=== PATIENT | female | born 1960 | race American Indian/Alaskan Native ===

== ENCOUNTER 2016-12-12 21:55 | Emergency (ER) | payer OTHER ==
[2016-12-12 21:55] VITALS: BMI 22.6
[2016-12-12 21:59] VITALS: TEMP 98.3
--- NOTE | 2016-12-12 22:49 | ED PDOC ---
Arrival/HPI - General Chief Complaint: High Blood Pressure Time Seen by Provider: 12/12/16 22:36 Historian: Patient - History of Present Illness Narrative History of Present Illness (Text): 12/12/16 22:48 Donny Stevenson is a 56 year old female who presents to the Emergency department complaining of dizziness today. Patient states she felt her blood pressure may have been elevated earlier today, went to a pharmacy to check, and noted her blood pressure was 150 systolic. Patient also states she felt dizzy and wanted her blood sugar checked. Patient denies any fever, chills, chest pain, shortness of breath, nausea, vomiting, diarrhea, urinary symptoms, back pain, neck pain, vision changes, headache, or any other complaints. PMD: Dr. Beckham Symptom Onset: Gradual Symptom Course: Unchanged Activities at Onset: Light Context: Home Past Medical History - Provider Review Nursing Documentation Reviewed: Yes - Infectious Disease Hx of Infectious Diseases: None - Tetanus Immunization Tetanus Immunization: Unknown - Cardiac Hx Cardiac Disorders: No - Pulmonary Hx Respiratory Disorders: No - Neurological Hx Neurological Disorder: No - HEENT Hx HEENT Disorder: Yes (wears glasses) Other/Comment: blurry of vision on right eye - Renal Hx Renal Disorder: No - Endocrine/Metabolic Hx Diabetes Mellitus Type 1: Yes - Hematological/Oncological Hx Blood Disorders: No - Integumentary Hx Dermatological Disorder: No - Musculoskeletal/Rheumatological Hx Musculoskeletal Disorders: No Hx Falls: No - Gastrointestinal Hx Gastrointestinal Disorders: Yes Other/Comment: GALLSTONES - Genitourinary/Gynecological Hx Genitourinary Disorders: No - Psychiatric Hx Psychophysiologic Disorder: No Hx Anxiety: No Hx Bipolar Disorder: No Hx Depression: No Hx Emotional Abuse: No Hx Hallucinations: No Hx Panic Disorder: No Hx Post Traumatic Stress Disorder: No Hx Psychosis: No Hx Physical Abuse: No Hx Schizophrenia: No Hx Sexual Abuse: No Hx Substance Use: No - Anesthesia Hx Anesthesia: Yes Hx Anesthesia Reactions: No Hx Malignant Hyperthermia: No - Suicidal Assessment Feels Threatened In Home Enviroment: No Family/Social History - Physician Review Nursing Documentation Reviewed: Yes Family/Social History: Unknown Family HX Smoking Status: Former Smoker Hx Alcohol Use: No Hx Substance Use: No Allergies/Home Meds Allergies/Adverse Reactions: Allergies No Known Allergies Allergy (Verified 10/26/15 16:37) Home Medications: Home Meds Medication Instructions Recorded Confirmed Zolpidem HALF TABLET [Ambien] 1 tab PO HS PRN 12/12/16 12/12/16 Review of Systems - Physician Review All systems were reviewed & negative as marked: Yes - Review of Systems Constitutional: Normal. absent: Fevers Eyes: Normal ENT: Normal Respiratory: Normal. absent: SOB, Cough Cardiovascular: Normal. absent: Chest Pain Gastrointestinal: Normal. absent: Abdominal Pain, Diarrhea, Nausea, Vomiting Genitourinary Female: Normal. absent: Dysuria, Frequency, Hematuria, Urine Output Changes Musculoskeletal: Normal. absent: Back Pain, Neck Pain Skin: Normal. absent: Rash Neurological: Normal, Dizziness. absent: Headache Endocrine: Normal Hemo/Lymphatic: Normal Psychiatric: Normal Physical Exam Vital Signs Reviewed: Yes Vital Signs Temp Pulse Resp BP Pulse Ox 12/13/16 00:05 68 16 141/86 100 12/12/16 21:59 98.3 F 90 18 149/90 99 Temperature: Afebrile Blood Pressure: Normal Pulse: Regular Respiratory Rate: Normal Appearance: Positive for: Well-Appearing, Non-Toxic, Comfortable Pain Distress: None Mental Status: Positive for: Alert and Oriented X 3 - Systems Exam Head: Present: Atraumatic, Normocephalic Pupils: Present: PERRL Extroacular Muscles: Present: EOMI Conjunctiva: Present: Normal Mouth: Present: Moist Mucous Membranes Neck: Present: Normal Range of Motion Respiratory/Chest: Present: Clear to Auscultation, Good Air Exchange. No: Respiratory Distress, Accessory Muscle Use Cardiovascular: Present: Regular Rate and Rhythm, Normal S1, S2. No: Murmurs Abdomen: Present: Normal Bowel Sounds. No: Tenderness, Distention, Peritoneal Signs Back: Present: Normal Inspection Upper Extremity: Present: Normal Inspection. No: Cyanosis, Edema Lower Extremity: Present: Normal Inspection. No: Edema Neurological: Present: GCS=15, CN II-XII Intact, Speech Normal Skin: Present: Warm, Dry, Normal Color. No: Rashes Psychiatric: Present: Alert, Oriented x 3, Normal Insight, Normal Concentration Medical Decision Making ED Course and Treatment: 12/12/16 22:48 Impression: 56 year old female complaining of dizziness tonight. Differential Diagnosis included but are not limited to: hypertension Plan: -- EKG -- Labs, cardiac enzymes -- Reassess and disposition Prior Visits: Notes and results from previous visits were reviewed. On 12/29/2015, pt was seen in the Emergency department for light-headedness. Pt was discharged home. Progress Notes: Reviewed EKG, NSR at [address]-segment elevations or depressions, no T-wave inversions, normal intervals. 12/12/16 23:55 On reevaluation the patient feels better and is in no acute distress. I have discussed the results and plan with the patient, who expresses understanding. Patient given the opportunity to ask question, all questions were answered and there is agreement with the plan to discharge the patient home Patient is stable for discharge. Patient was instructed to follow up with physician/clinic in 1-2 days or return if symptoms persist/worsen or new concerning symptoms arise. - Lab Interpretations Lab Results: 12/12/16 23:00 12/12/16 23:00 Lab Results 12/12/16 23:00: WBC 3.2 L, RBC 4.33, Hgb 12.5, Hct 38.5, MCV 88.9, MCH 28.9, MCHC 32.5, RDW 13.8, Plt Count 272, MPV 9.7 12/12/16 23:00: Sodium 142, Potassium 3.9, Chloride 103, Carbon Dioxide 30, Anion Gap 13, BUN 18, Creatinine 0.8, Est GFR ( Amer) > 60, Est GFR (Non- Af Amer) > 60, Random Glucose 116 H, Calcium 9.8, Total Bilirubin 0.9, AST 24, ALT 26, Alkaline Phosphatase 60, Lactate Dehydrogenase 457, Total Creatine Kinase 367 H, CK-MB (CK-2) 4.1 H, CK-MB (CK-2) % Cancelled, Troponin I < 0.01, Total Protein 7.0, Albumin 4.0, Globulin 2.9, Albumin/Globulin Ratio 1.4 12/12/16 23:00: PT 10.7, INR 0.99, APTT 26.8 I have reviewed the lab results: Yes - EKG Interpretation Interpreted by ED Physician: Yes Type: 12 lead EKG - Scribe Statement The provider has reviewed the documentation as recorded by the Sunny June Provider Scribe Attestation: All medical record entries made by the Scribe were at my direction and personally dictated by me. I have reviewed the chart and agree that the record accurately reflects my personal performance of the history, physical exam, medical decision making, and the department course for this patient. I have also personally directed, reviewed, and agree with the discharge instructions and disposition. Disposition/Present on Arrival - Present on Arrival Any Indicators Present on Arrival: No History of DVT/PE: No History of Uncontrolled Diabetes: No Urinary Catheter: No History of Decub. Ulcer: No History Surgical Site Infection Following: None - Disposition Have Diagnosis and Disposition been Completed?: Yes Diagnosis: Hypertension Disposition: HOME/ ROUTINE Disposition Time: 23:55 Patient Plan: Discharge Condition: GOOD Discharge Instructions (ExitCare): Hypertension (ED) Additional Instructions: Take meds as prescribed/follow up with your doctor this week Prescriptions: amLODIPine [Norvasc] 2.5 mg PO DAILY #21 tab Referrals: Paige Siu, [Primary Care Provider] - Follow up with primary Forms: [employer] (German)
[2016-12-12 23:18] LABS: HEMATOCRIT 38.5 % (36.0-48.0); MEAN CELL VOLUME 88.9 fl (80.0-105.0); MEAN CORPUSCULAR HEMOGLOBIN 28.9 pg (25.0-35.0); MEAN CORPUSCULAR HGB CONC 32.5 g/dl (31.0-37.0); MEAN PLATELET VOLUME 9.7 fl (7.0-11.0); RED CELL DISTRIBUTION WIDTH 13.8 % (11.5-14.5); WHITE BLOOD COUNT 3.2 10^3/ul (4.5-11.0)
[2016-12-12 23:24] LABS: INR 0.99 (0.93-1.08); PARTIAL THROMBOPLASTIN TIME 26.8 Seconds (23.7-30.8)
[2016-12-12 23:30] LABS: ALB/GLOB RATIO 1.4 (1.1-1.8); ALKALINE PHOSPHATASE 60 U/L (38-126); ALT/SGPT 26 U/L (7-56); AST/SGOT 24 U/L (14-36); BILIRUBIN,TOTAL 0.9 mg/dL (0.2-1.3); BLOOD UREA NITROGEN 18 mg/dL (7-21); CALCIUM 9.8 mg/dL (8.4-10.5); CARBON DIOXIDE 30 mmol/L (21-33); CHLORIDE 103 mmol/L (95-110); GFR AFRICAN-AMERICAN > 60; GLUCOSE,RANDOM 116 mg/dL (70-110); POTASSIUM 3.9 mmol/L (3.6-5.0); SODIUM 142 mmol/L (132-148)
[2016-12-12 23:42] LABS: TROPONIN I < 0.01 ng/mL
[2016-12-13 00:05] VITALS: BP 141/86; PULSE 68; RESP 16; O2SAT 100
--- NOTE | 2016-12-13 14:24 | CARD ---
APPROVED REPORT EKG Measurement Heart [id number] <Conclusion> Normal sinus rhythm Normal ECG
== END 2016-12-13 00:05 | disposition home or self-care (01) ==
LOC: ED 21:55
DX: I10 Essential (primary) hypertension (principal); Z87.891 Personal history of nicotine dependence

== ENCOUNTER 2017-01-05 19:09 | Emergency (ER) | payer OTHER ==
[2017-01-05 19:10] VITALS: BMI 22.6
[2017-01-05 19:39] VITALS: BP 121/83; PULSE 74; RESP 16; TEMP 98.4; O2SAT 98
--- NOTE | 2017-01-05 19:59 | ED PDOC ---
Arrival/HPI - General Chief Complaint: Medical Clearance Time Seen by Provider: 01/05/17 19:45 - History of Present Illness Narrative History of Present Illness (Text): 01/05/17 19:57 Patient is a 56 y/o F with hx of chronic heartburn and dysphasia, presenting complaining of sore throat. She denies pain or difficulty eating. She is requesting a po medication to help her. She reports that she wants to cough and was a feeling like she has mucus in her throat. Patient has been seen multiple times by ENT, GI, neurology for similar symptoms. Denies coughing, nausea, vomiting, or drooling. Past Medical History - Infectious Disease Hx of Infectious Diseases: None - Tetanus Immunization Tetanus Immunization: Unknown - Cardiac Hx Cardiac Disorders: No - Pulmonary Hx Respiratory Disorders: No - Neurological Hx Neurological Disorder: No - HEENT Hx HEENT Disorder: Yes (wears glasses) Other/Comment: blurry of vision on right eye - Renal Hx Renal Disorder: No - Endocrine/Metabolic Hx Diabetes Mellitus Type 1: Yes - Hematological/Oncological Hx Blood Disorders: No - Integumentary Hx Dermatological Disorder: No - Musculoskeletal/Rheumatological Hx Musculoskeletal Disorders: No Hx Falls: No - Gastrointestinal Hx Gastrointestinal Disorders: Yes Other/Comment: GALLSTONES - Genitourinary/Gynecological Hx Genitourinary Disorders: No - Psychiatric Hx Psychophysiologic Disorder: Yes Hx Anxiety: No Hx Bipolar Disorder: No Hx Depression: No Hx Emotional Abuse: No Hx Hallucinations: No Hx Panic Disorder: No Hx Post Traumatic Stress Disorder: No Hx Psychosis: No Hx Physical Abuse: No Hx Schizophrenia: No Hx Sexual Abuse: No Hx Substance Use: No Other/Comment: Insomnia - Anesthesia Hx Anesthesia: Yes Hx Anesthesia Reactions: No Hx Malignant Hyperthermia: No - Suicidal Assessment Feels Threatened In Home Enviroment: No Family/Social History Family/Social History: No Known Family HX Smoking Status: Former Smoker Hx Alcohol Use: No Hx Substance Use: No Allergies/Home Meds Allergies/Adverse Reactions: Allergies No Known Allergies Allergy (Verified 01/05/17 19:39) Home Medications: Home Meds Medication Instructions Recorded Confirmed Zolpidem HALF TABLET [Ambien] 1 tab PO HS PRN 12/12/16 01/05/17 Review of Systems - Review of Systems Constitutional: absent: Weight Change, Fevers Eyes: absent: Vision Changes ENT: Sore Throat, Other (no drooling, no voice change, able to tolerate po). absent: Voice Changes, Rhinorrhea, Sinus Congestion Respiratory: Cough. absent: SOB, Sputum, Wheezing Cardiovascular: absent: Chest Pain, Palpitations Gastrointestinal: absent: Abdominal Pain, Constipation, Diarrhea, Nausea, Vomiting, Food Intolerance Genitourinary Female: absent: Dysuria Physical Exam Vital Signs Temp Pulse Resp BP Pulse Ox 01/05/17 19:36 98.4 F 74 16 121/83 98 Temperature: Afebrile Blood Pressure: Normal Pulse: Regular Respiratory Rate: Normal Appearance: Positive for: Well-Appearing, Non-Toxic, Comfortable Pain Distress: None Mental Status: Positive for: Alert and Oriented X 3 - Systems Exam Head: Present: Atraumatic, Normocephalic Pupils: Present: PERRL Extroacular Muscles: Present: EOMI Conjunctiva: Present: Normal Mouth: Present: Moist Mucous Membranes, Normal Lips, Normal Tounge, Normal Teeth. No: Drooling Pharnyx: No: ERYTHEMA, EXUDATE, TONSILS ENLARGED, Peritonsilar Swelling, Uvular Deviation, Muffled/Hoarse Voice, Strider, Soft Palate/Uvular Edema Nose (External): Present: Atraumatic Neck: Present: Normal Range of Motion Respiratory/Chest: Present: Clear to Auscultation, Good Air Exchange. No: Respiratory Distress Cardiovascular: Present: Regular Rate and Rhythm, Normal S1, S2. No: Murmurs Neurological: Present: GCS=15 Psychiatric: Present: Alert, Oriented x 3 Medical Decision Making ED Course and Treatment: 01/05/17 20:26 Ambulating around the ED without issue. Requesting po meds. 01/05/17 21:14 Strep is negative. Patient tolerating po. Instructed to follow-up with ENT - Lab Interpretations Lab Results: Lab Results 01/05/17 21:27: POC Glucose (mg/dL) 77 01/05/17 20:35: Grp A Beta Strep Ag Negative - Medication Orders Current Medication Orders: Discontinued Medications Ibuprofen (Motrin Tab) 600 mg PO STAT STA Stop: 01/05/17 20:07 Last Admin: 01/05/17 20:40 Dose: 600 mg MAR Pain/Vitals Document 01/05/17 20:40 SC (Rec: 01/05/17 20:40 SC [id number]) Pain Reassessment Is This A Pain ReAssessment? No Sleep Is patient sleeping during reassessment? No Presence of Pain Presence of Pain Yes Pain Scale Used Pain Scale Used Numeric Location Pain Location Body Site Throat Intensity 5 Scale Used Numeric Disposition/Present on Arrival - Present on Arrival Any Indicators Present on Arrival: No History of DVT/PE: No History of Uncontrolled Diabetes: No Urinary Catheter: No History of Decub. Ulcer: No History Surgical Site Infection Following: None - Disposition Have Diagnosis and Disposition been Completed?: Yes Diagnosis: Dysphagia Disposition: HOME/ ROUTINE Disposition Time: 21:15 Patient Plan: Discharge Condition: GOOD Additional Instructions: Follow-up with PMD within 2 days. Return to ED if condition worsens. Follow-up with ENT Referrals: [facility] [Outside] - Follow up with primary [facility] at [facility] [Outside] - Follow up with primary Darwin Bernardo DO [Doctor Osteopathy] - Follow up with primary Forms: [employer] (Guyanese)
== END 2017-01-05 21:34 | disposition home or self-care (01) ==
LOC: ED 19:09
DX: R13.10 Dysphagia, unspecified (principal); E11.9 Type 2 diabetes mellitus without complications

== ENCOUNTER 2017-09-05 16:38 | Emergency (ER) | payer OTHER ==
[2017-09-05 16:38] VITALS: BMI 22.6
[2017-09-05 16:55] VITALS: BP 144/88; PULSE 78; RESP 18; TEMP 98.3; O2SAT 98
--- NOTE | 2017-09-05 17:09 | ED PDOC ---
Arrival/HPI - General Chief Complaint: Medical Clearance Time Seen by Provider: 09/05/17 16:55 Historian: Patient - History of Present Illness Narrative History of Present Illness (Text): 09/05/17 17:07 This 57 yo female who denies pmh , presents to this ED requesting her blood pressure check. Patient stated she feels well. Patient denies fever, SOB, CP, abdominal pain, urinary symptoms, dizziness, diplopia, dysarthria, weakness, She denies other somatic complains. 09/05/17 17:16 Time/Duration: Other (see hpi) Context: Home Past Medical History - Provider Review Nursing Documentation Reviewed: Yes - Infectious Disease Hx of Infectious Diseases: None - Tetanus Immunization Tetanus Immunization: Unknown - Cardiac Hx Cardiac Disorders: No - Pulmonary Hx Respiratory Disorders: No - Neurological Hx Neurological Disorder: No - HEENT Hx HEENT Disorder: Yes (wears glasses) - Renal Hx Renal Disorder: No - Endocrine/Metabolic Hx Endocrine Disorders: No - Hematological/Oncological Hx Blood Disorders: No - Integumentary Hx Dermatological Disorder: No - Musculoskeletal/Rheumatological Hx Musculoskeletal Disorders: No Hx Falls: No - Gastrointestinal Hx Gastrointestinal Disorders: Yes Other/Comment: GALLSTONES - Genitourinary/Gynecological Hx Genitourinary Disorders: No - Psychiatric Hx Psychophysiologic Disorder: Yes Hx Substance Use: No Other/Comment: Insomnia - Anesthesia Hx Anesthesia: Yes Hx Anesthesia Reactions: No Hx Malignant Hyperthermia: No - Suicidal Assessment Feels Threatened In Home Enviroment: No Family/Social History - Physician Review Nursing Documentation Reviewed: Yes Family/Social History: Other (noncontributory) Smoking Status: Former Smoker Hx Alcohol Use: No Hx Substance Use: No Allergies/Home Meds Allergies/Adverse Reactions: Allergies No Known Allergies Allergy (Verified 09/05/17 16:55) Home Medications: Home Meds Medication Instructions Recorded Confirmed Zolpidem HALF TABLET [Ambien] 1 tab PO HS PRN 12/12/16 09/05/17 Review of Systems - Review of Systems Constitutional: Normal. absent: Fatigue, Weight Change, Fevers Eyes: Normal ENT: Normal. absent: Sore Throat, Rhinorrhea Respiratory: Normal. absent: SOB, Cough Cardiovascular: Normal. absent: Chest Pain, Palpitations Gastrointestinal: Normal. absent: Abdominal Pain, Nausea, Vomiting Genitourinary Female: Normal. absent: Dysuria, Frequency, Hematuria Musculoskeletal: Normal Skin: Normal. absent: Rash, Pruritis, Skin Lesions Neurological: Normal. absent: Headache, Dizziness, Focal Weakness, Gait Changes , Speech Changes, Facial Droop, Disequilibrium, Seizure Endocrine: Normal Hemo/Lymphatic: Normal Psychiatric: Normal. absent: Anxiety, Depression, Suicidal Ideation Physical Exam Vital Signs Temp Pulse Resp BP Pulse Ox 09/05/17 16:49 98.3 F 78 18 144/88 98 Temperature: Afebrile Blood Pressure: Normal Pulse: Regular Respiratory Rate: Normal Appearance: Positive for: Well-Appearing, Non-Toxic, Comfortable Pain Distress: None Mental Status: Positive for: Alert and Oriented X 3 - Systems Exam Head: Present: Atraumatic, Normocephalic Pupils: Present: PERRL Extroacular Muscles: Present: EOMI Conjunctiva: Present: Normal Mouth: Present: Moist Mucous Membranes Neck: Present: Normal Range of Motion Respiratory/Chest: Present: Clear to Auscultation, Good Air Exchange. No: Respiratory Distress, Accessory Muscle Use Cardiovascular: Present: Regular Rate and Rhythm, Normal S1, S2. No: Murmurs Abdomen: No: Tenderness, Distention, Peritoneal Signs Back: Present: Normal Inspection. No: CVA Tenderness Upper Extremity: Present: Normal Inspection, Normal ROM, NORMAL PULSES, Neurovascularly Intact, Capillary Refill < 2s. No: Cyanosis, Edema Lower Extremity: Present: Normal Inspection, NORMAL PULSES, Normal ROM, Neurovascularly Intact, Capillary Refill < 2 s. No: Edema Neurological: Present: GCS=15, CN II-XII Intact, Speech Normal, Motor Func Grossly Intact, Normal Sensory Function, Normal Cerebellar Funct, Gait Normal Skin: Present: Warm, Dry, Normal Color. No: Rashes Psychiatric: Present: Alert, Oriented x 3, Normal Insight, Normal Concentration Medical Decision Making ED Course and Treatment: 09/05/17 17:10 Re-evaluation. Patient feels better. Discussed results and plan with patient who expresses understanding. All questions answered and there is agreement with the plan to discharge home with instructions. Patient stable for discharge. Return if symptoms persist or worsen. Re-evaluation Time: 17:10 Reassessment Condition: Re-examined, Improved Disposition/Present on Arrival - Present on Arrival Any Indicators Present on Arrival: No History of DVT/PE: No History of Uncontrolled Diabetes: No Urinary Catheter: No History of Decub. Ulcer: No History Surgical Site Infection Following: None - Disposition Have Diagnosis and Disposition been Completed?: Yes Diagnosis: Hypertension Disposition: HOME/ ROUTINE Disposition Time: 17:11 Patient Plan: Discharge Condition: GOOD Discharge Instructions (ExitCare): High Blood Pressure (DC), Low Salt Diet Additional Instructions: Call private doctor for follow up visit in 1-2 days. You should call Clinic doctor for revaluation. Return to emergency if symptoms worsen. Referrals: [facility] [Outside] - Follow up with primary [facility] [Outside] - Follow up with primary
== END 2017-09-05 17:30 | disposition home or self-care (01) ==
LOC: ED 16:38
DX: I10 Essential (primary) hypertension (principal); Z87.891 Personal history of nicotine dependence

== ENCOUNTER 2017-11-17 19:00 | Inpatient (IN) | payer OTHER ==
[2017-11-17 19:11] VITALS: BMI 24.2
--- NOTE | 2017-11-17 19:15 | ED PDOC ---
Arrival/HPI - General Chief Complaint: Weakness/Neurological Deficit Time Seen by Provider: 11/17/17 19:02 Historian: Patient - History of Present Illness Narrative History of Present Illness (Text): 11/17/17 19:48 57 yr old female w/ hx of previous cerebellar stroke, poor historian p/w diffuse body weakness described as "heavyness" x1 week. Pt reports never feeling these symptoms in the past. She neither describes the dizziness as either vertigo or lightheadedness. She notes these symptoms have been constant over the last week- and that today roughly 2 hours prior she developed a mild headache. She denies any Chest pain, shortness of breath, dysuria, urgency or frequency, dark or bloody stool, constipation, diarrhea, nausea, vomiting, trauma. No fever or neck stiffness. She denies any new diet or recent travel or any bug bites. No rashes. She notes she does not have a PMD. 11/17/17 19:55 Past Medical History - Provider Review Nursing Documentation Reviewed: Yes - Travel History Have you recently traveled outside [place] w/in the past 3 mons?: No - Infectious Disease Hx of Infectious Diseases: None - Tetanus Immunization Tetanus Immunization: Unknown - Reproductive Menopause: Yes - Cardiac Hx Cardiac Disorders: No - Pulmonary Hx Respiratory Disorders: No - Neurological Hx Neurological Disorder: No - HEENT Hx HEENT Disorder: Yes (wears glasses) - Renal Hx Renal Disorder: No - Endocrine/Metabolic Hx Endocrine Disorders: No - Hematological/Oncological Hx Blood Disorders: No - Integumentary Hx Dermatological Disorder: No - Musculoskeletal/Rheumatological Hx Musculoskeletal Disorders: No Hx Falls: No - Gastrointestinal Hx Gastrointestinal Disorders: Yes Hx Gall Bladder Disease: Yes Other/Comment: GALLSTONES - Genitourinary/Gynecological Hx Genitourinary Disorders: No - Psychiatric Hx Psychophysiologic Disorder: Yes Hx Substance Use: No Other/Comment: Insomnia - Anesthesia Hx Anesthesia: Yes Hx Anesthesia Reactions: No Hx Malignant Hyperthermia: No - Suicidal Assessment Feels Threatened In Home Enviroment: No Family/Social History - Physician Review Nursing Documentation Reviewed: Yes Family/Social History: Unknown Family HX Smoking Status: Former Smoker Hx Alcohol Use: No Hx Substance Use: No Allergies/Home Meds Allergies/Adverse Reactions: Allergies No Known Allergies Allergy (Verified 09/05/17 16:55) Home Medications: Home Meds Medication Instructions Recorded Confirmed Zolpidem HALF TABLET [Ambien] 1 tab PO HS PRN 12/12/16 09/05/17 Review of Systems - Review of Systems Constitutional: Fatigue Eyes: Normal ENT: Normal Respiratory: Normal Cardiovascular: Normal Gastrointestinal: Normal Genitourinary Female: Normal Musculoskeletal: Normal Skin: Normal Neurological: Headache Endocrine: Normal Hemo/Lymphatic: Normal Psychiatric: Normal Physical Exam Vital Signs Temp Pulse Resp BP Pulse Ox 11/17/17 20:52 68 16 128/91 H 100 11/17/17 19:05 98.1 F 76 18 143/88 98 Temperature: Afebrile Blood Pressure: Normal Pulse: Regular Respiratory Rate: Normal Appearance: Positive for: Well-Appearing, Non-Toxic, Comfortable Pain Distress: None Mental Status: Positive for: Alert and Oriented X 3 - Systems Exam Head: Present: Atraumatic, Normocephalic Pupils: Present: PERRL Extroacular Muscles: Present: EOMI Conjunctiva: Present: Normal Mouth: Present: Moist Mucous Membranes Neck: Present: Normal Range of Motion. No: Meningeal Signs, MIDLINE TENDERNESS Respiratory/Chest: Present: Clear to Auscultation, Good Air Exchange. No: Respiratory Distress, Accessory Muscle Use Cardiovascular: Present: Regular Rate and Rhythm, Normal S1, S2. No: Murmurs Abdomen: No: Tenderness, Distention, Peritoneal Signs Back: Present: Normal Inspection Upper Extremity: Present: Normal Inspection. No: Cyanosis, Edema Lower Extremity: Present: Normal Inspection. No: Edema Neurological: Present: GCS=15, CN II-XII Intact, Speech Normal, Motor Func Grossly Intact, Normal Sensory Function, Normal Cerebellar Funct (good finger to nose and heel to booth. ). No: Gait Normal (when asked to walk straight pt walks in an arc. ) Skin: Present: Warm, Dry, Normal Color. No: Rashes Psychiatric: Present: Alert, Oriented x 3, Normal Insight, Normal Concentration Medical Decision Making ED Course and Treatment: 11/17/17 19:58 57 yr old female w/ hx of cerebellar stroke p/w heavyness and mild MATA. MATA not worst of life, not sudden in onset- and within 6 hours, u/l SAH but will r/ out w/ CT. Heavyness w/ out recent sickness, new foods, upgoing or downgoing paralysis, will check TSH, basic labs, and cardiac w/u. Given hx of cerebellar stroke and abnl arcing gait but normal cereballar finger to nose and heel to booth, will likely require further f/u inpt for ?stroke 1 week prior. Labs and imaging ordered. 11/17/2017 20:[address] IMPRESSION: No acute intracranial pathology or traumatic injury. Dictator: Ronaldo Lopez MD 11/17/17 21:36 pending TSH. labs otherwise unremarkable given hx of CVA, and findings will consult neuro 11/17/17 21:47 appreciate consult w/ Dr. Taylor (neuro)- ASA, MRI, obs- will see pt in AM Pt has no PMD per pt. Appreciate consult w/ Dr. Shah (hospitalist)- to go to hospitalist service. updated pt. will admit to obs. - Lab Interpretations Lab Results: 11/17/17 20:30 11/17/17 20:30 Lab Results 11/17/17 20:45: Urine Color Straw, Urine Appearance Clear, Urine pH 6.0, Ur Specific Caldwell 1.020, Urine Protein Negative, Urine Glucose (UA) Negative, Urine Ketones Negative, Urine Blood Negative, Urine Nitrate Negative, Urine Bilirubin Negative, Urine Urobilinogen 0.2, Ur Leukocyte Esterase Trace H, Urine RBC 0 - 2, Urine WBC 1 - 3, Ur Epithelial Cells 3 - 4, Urine Bacteria Mod 11/17/17 20:36: pO2 40, VBG pH 7.36, VBG pCO2 50.0, VBG HCO3 28.2 H, VBG Total CO2 29.7 H, VBG O2 Sat (Calc) 77.0 H, VBG Base Excess 1.9, VBG Potassium 3.4 L, Glucose 78, Lactate 0.7, FiO2 21.0, Sodium 140.0, Chloride 106.0, Venous Blood Potassium 3.4 L 11/17/17 20:30: TSH 3rd Generation 2.32 11/17/17 20:30: Sodium 144, Potassium 3.5 L, Chloride 107, Carbon Dioxide 26, Anion Gap 14, BUN 12, Creatinine 0.7, Est GFR ( Amer) > 60, Est GFR (Non- Af Amer) > 60, Random Glucose 82, Calcium 9.7, Phosphorus 3.9, Magnesium 2.0, Total Bilirubin 0.3, AST 23, ALT 17, Alkaline Phosphatase 74, Troponin I < 0.01 , NT-Pro-B Natriuret Pep 64.1, Total Protein 7.6, Albumin 4.3, Globulin 3.3, Albumin/Globulin Ratio 1.3 11/17/17 20:30: WBC 4.0 L D, RBC 4.43, Hgb 12.6, Hct 38.0, MCV 85.8 D, MCH 28.4 , MCHC 33.2, RDW 14.1, Plt Count 305, MPV 9.7, Gran % 36.6 L, Lymph % (Auto) 51.5 H, Clark % (Auto) 8.6 H, Eos % (Auto) 2.8, Baso % (Auto) 0.5, Gran # 1.45, Lymph # (Auto) 2.0, Clark # (Auto) 0.3, Eos # (Auto) 0.1, Baso # (Auto) 0.02 - RAD Interpretation Radiology Orders: 11/17/17 19:43 HEAD W/O CONTRAST [CT] Stat CHEST TWO VIEWS (PA/LAT) [RAD] Stat - Medication Orders Current Medication Orders: Discontinued Medications Aspirin (Aspirin) 325 mg PO STAT STA Stop: 11/17/17 21:40 Disposition/Present on Arrival - Present on Arrival Any Indicators Present on Arrival: No History of DVT/PE: No History of Uncontrolled Diabetes: No Urinary Catheter: No History of Decub. Ulcer: No History Surgical Site Infection Following: None - Disposition Have Diagnosis and Disposition been Completed?: Yes Diagnosis: Weakness Disposition Time: 21:49 Condition: GOOD Discharge Instructions (ExitCare): Weakness (ED) Referrals: PCP,NO [Primary Care Provider] - Follow up with primary Forms: [employer] ([place])
[2017-11-17 20:44] LABS: VENOUS BLOOD GAS BASE EXCESS 1.9 mmol/L (0.0-2.0); VENOUS BLOOD GAS PO2 40 mm/Hg (30-55); VENOUS BLOOD PH 7.36 (7.32-7.43)
[2017-11-17 20:49] LABS: BASO # 0.02 K/mm3 (0.0-2.0); BASO % 0.5 % (0.0-3.0); EOS # 0.1 (0.0-0.7); EOS % 2.8 % (1.5-5.0); GRAN # 1.45 (1.4-6.5); GRAN % 36.6 % (50.0-68.0); HEMOGLOBIN 12.6 g/dL (12.0-16.0); LYMPH % 51.5 % (22.0-35.0); MEAN CORPUSCULAR HEMOGLOBIN 28.4 pg (25.0-35.0); MEAN CORPUSCULAR HGB CONC 33.2 g/dl (31.0-37.0); MEAN PLATELET VOLUME 9.7 fl (7.0-11.0); MONO # 0.3 (0.1-0.6); MONO % 8.6 % (1.0-6.0); RBC 4.43 10^6/uL (3.5-6.1); RED CELL DISTRIBUTION WIDTH 14.1 % (11.5-14.5)
[2017-11-17 20:50] LABS: MEAN CELL VOLUME 85.8 fl (80.0-105.0)
[2017-11-17 21:12] LABS: URINE BILIRUBIN NEGATIVE (NEGATIVE); URINE BLOOD NEGATIVE (NEGATIVE); URINE GLUCOSE (UA) NEGATIVE (NEGATIVE); URINE LEUKOCYTE ESTERASE TRACE Leu/uL (NEGATIVE); URINE PROTEIN NEGATIVE mg/dL (<30 mg/dL); URINE UROBILINOGEN 0.2 E.U./dL (<1 E.U./dL)
[2017-11-17 21:14] LABS: ALB/GLOB RATIO 1.3 (1.1-1.8); ALBUMIN 4.3 g/dL (3.0-4.8); ALT/SGPT 17 U/L (7-56); AST/SGOT 23 U/L (14-36); BLOOD UREA NITROGEN 12 mg/dL (7-21); CALCIUM 9.7 mg/dL (8.4-10.5); GFR NON-AFRICAN AMERICAN > 60
[2017-11-17 21:23] LABS: URINE APPEARANCE CLEAR (CLEAR); URINE COLOR STRAW (YELLOW)
[2017-11-17 21:25] LABS: B-TYPE NATRIURETIC PEPTIDE 64.1 pg/mL (0-450); TROPONIN I < 0.01 ng/mL
[2017-11-17 21:28] LABS: URINE BACTERIA MOD (NEG); URINE RBC 0 - 2 /hpf (0-2)
[2017-11-17] MEDS ORDERED: Potassium Chloride 20 mEq ER Tab PO ONE (22:10)
--- NOTE | 2017-11-18 00:07 | CP.PCM.HP ---
History of Present Illness - History of Present Illness History of Present Illness: PGY-1 History & Physical for Dr. Shah's service CC: body heaviness HPI: Patient is a 57 year female w/ PMH of cerebellar stroke presents to hospital for evaluation of body heaviness. Patient reports the heaviness began about one week ago with diffuse heaviness not localized to a certain body region. She came to hospital a week later because body heaviness had not resolved and she was scared something was of concern. She says these symptoms began while she was doing nothing but are worsened when she walks for a prolonged period of time or has to climb steps. She says her knees begin to feel weak. She has took no medications at home for relief. Patient complains of difficulty swallowing at times. She says she had a diagnosis of cerebellar stroke when she was having difficulty swallowing and decided to come to hospital. During that time she was told by doctors at [facility] [place] that she had a cerebellar stroke because it was found on imaging while evaluating for swallowing difficulty. PMH- Cerebellar stroke PSH- gallbladder stone removal FH- Denies Meds- Ambien 5mg Allergies: NKDA Social: Denies alcohol, drug, tobacco use PMD: None currently Code: Full Code Present on Admission - Present on Admission Any Indicators Present on Admission: No Review of Systems - Constitutional Constitutional: absent: Chills, Fever, Headache, Weight Loss - EENT Eyes: absent: Change in Vision Ears: absent: Dizziness - Cardiovascular Cardiovascular: absent: Chest Pain, Diaphoresis, Lightheadedness, Palpitations - Respiratory Respiratory: absent: Cough, Dyspnea - Gastrointestinal Gastrointestinal: absent: Abdominal Pain, Constipation, Diarrhea, Nausea, Vomiting - Genitourinary Genitourinary: absent: Change in Urinary Stream, Difficulty Urinating, Dysuria - Musculoskeletal Musculoskeletal: absent: Abnormal Gait, Back Pain, Numbness, Tingling - Neurological Neurological: absent: Dizziness, Numbness, Focal Weakness, Headaches, Weakness Additional comments: body heaviness Past Patient History - Infectious Disease Hx of Infectious Diseases: None - Tetanus Immunizations Tetanus Immunization: Unknown - Past Medical History & Family History Past Medical History?: No - Past Social History Smoking Status: Former Smoker - CARDIAC Hx Cardiac Disorders: No - PULMONARY Hx Respiratory Disorders: No - NEUROLOGICAL Hx Neurological Disorder: No - HEENT Hx HEENT Problems: Yes (wears glasses) - RENAL Hx Chronic Kidney Disease: No - ENDOCRINE/METABOLIC Hx Endocrine Disorders: No - HEMATOLOGICAL/ONCOLOGICAL Hx Blood Disorders: No - INTEGUMENTARY Hx Dermatological Problems: No - MUSCULOSKELETAL/RHEUMATOLOGICAL Hx Musculoskeletal Disorders: No Hx Falls: No - GASTROINTESTINAL Hx Gastrointestinal Disorders: Yes Hx Gall Bladder Disease: Yes Other/Comment: GALLSTONES - GENITOURINARY/GYNECOLOGICAL Hx Genitourinary Disorders: No - PSYCHIATRIC Hx Psychophysiologic Disorder: Yes Hx Substance Use: No Other/Comment: Insomnia - SURGICAL HISTORY Hx Surgeries: Yes (removal of stone in the gallbladder) - ANESTHESIA Hx Anesthesia: Yes Hx Anesthesia Reactions: No Hx Malignant Hyperthermia: No Meds Allergies/Adverse Reactions: Allergies Allergy/AdvReac Type Severity Reaction Status Date / Time No Known Allergies Allergy Verified 09/05/17 16:55 Physical Exam - Constitutional Appears: Non-toxic, No Acute Distress - Head Exam Head Exam: NORMAL INSPECTION, NORMOCEPHALIC - Eye Exam Eye Exam: EOMI, Normal appearance. absent: Nystagmus, Scleral icterus Pupil Exam: NORMAL ACCOMODATION - ENT Exam ENT Exam: Mucous Membranes Moist, Normal Exam - Respiratory Exam Respiratory Exam: Clear to Auscultation Bilateral, NORMAL BREATHING PATTERN. absent: Rales, Rhonchi, Wheezes - Cardiovascular Exam Cardiovascular Exam: REGULAR RHYTHM, +S1, +S2 - GI/Abdominal Exam GI & Abdominal Exam: Normal Bowel Sounds, Soft. absent: Distended, Firm, Guarding, Tenderness - Extremities Exam Extremities exam: Positive for: normal inspection. Negative for: calf tenderness, pedal edema - Neurological Exam Neurological exam: Alert, CN II-XII Intact, Oriented x3, Reflexes Normal - Expanded Neurological Exam Expanded Cerebellar Function: Finger to Nose: Normal Sensory exam: Lower Extremity Light Touch: Normal, Upper Extremity Light Touch: Normal Neuro motor strength exam: Left Upper Extremity: 5, Right Upper Extremity: 5, Left Lower Extremity: 5, Right Lower Extremity: 5 DTR: Patellar Left: 2+, Patellar Right: 2+ - Psychiatric Exam Psychiatric exam: Normal Affect, Normal Mood - Skin Skin Exam: Intact, Normal Color Results - Vital Signs Recent Vital Signs: Last Vital Signs Temp 98.6 F 11/17/17 23:07 Pulse 69 11/17/17 23:07 Resp 18 11/17/17 23:07 BP 127/76 11/17/17 23:07 Pulse Ox 99 11/17/17 23:07 - Labs Result Diagrams: 11/17/17 20:30 11/17/17 20:30 Assessment & Plan - Assessment and Plan (Free Text) Assessment: Patient is a 57 year old female who presents to the hospital for evaluation of body heaviness; CT head was negative for acute bleed Plan: Body heaviness Neuro Consulted: Dr. Taylor- amanda Aspirin 81mg po daily; further recommendations appreciated CT head-full read pending- negative for acute bleed U/S carotid & vertebral bodies MRA head and neck pending MRI w/o pending UDS pending; B12 pending; Folate pending TSH 2.32 Troponin negative Neurocheck q4h Repeat CBC in AM Hypokalemia 3.5; Repeat CMP in AM PPX: DVT ppx: Lovenox 40mg sc daily GI ppx: Not indicated at this time
[2017-11-18 06:37] VITALS: O2SAT 98
[2017-11-18 07:27] LABS: BASO # 0.01 K/mm3 (0.0-2.0); BASO % 0.3 % (0.0-3.0); EOS # 0.1 (0.0-0.7); EOS % 3.9 % (1.5-5.0); GRAN # 1.3 (1.4-6.5); GRAN % 39.3 % (50.0-68.0); HEMOGLOBIN 11.8 g/dL (12.0-16.0); LYMPH # 1.5 (1.2-3.4); LYMPH % 45.3 % (22.0-35.0); MEAN CELL VOLUME 85.8 fl (80.0-105.0); MEAN CORPUSCULAR HGB CONC 32.6 g/dl (31.0-37.0); MEAN PLATELET VOLUME 9.7 fl (7.0-11.0); MONO # 0.4 (0.1-0.6); MONO % 11.2 % (1.0-6.0); RBC 4.22 10^6/uL (3.5-6.1); WHITE BLOOD COUNT 3.3 10^3/ul (4.5-11.0)
[2017-11-18 07:46] LABS: HDL CHOLESTEROL 84 mg/dL (29-60)
[2017-11-18 07:50] LABS: ALB/GLOB RATIO 1.3 (1.1-1.8); ALBUMIN 3.9 g/dL (3.0-4.8); ALT/SGPT 20 U/L (7-56); AST/SGOT 26 U/L (14-36); BLOOD UREA NITROGEN 9 mg/dL (7-21); CALCIUM 9.3 mg/dL (8.4-10.5); GFR NON-AFRICAN AMERICAN > 60
[2017-11-18 07:57] LABS: LDL CHOLESTEROL 80 mg/dL (0-129)
[2017-11-18] MEDS ORDERED: Potassium Chloride 40 mEq/30 ml LIQ UD PO STA (08:07)
--- NOTE | 2017-11-18 08:35 | CT ---
Date of service: 11/17/2017 PROCEDURE: CT HEAD WITHOUT CONTRAST. HISTORY: headache, weakness COMPARISON: Noncontrast head CT performed 11/17/14 TECHNIQUE: Axial computed tomography images were obtained through the head/brain without intravenous contrast. Radiation dose: Total exam DLP = 876.77 mGy-cm. This CT exam was performed using one or more of the following dose reduction techniques: Automated exposure control, adjustment of the mA and/or kV according to patient size, and/or use of iterative reconstruction technique. FINDINGS: HEMORRHAGE: No intracranial hemorrhage. BRAIN: Diffuse atrophy with prominence of the ventricles and sulci noted. No mass effect or edema. Left cerebellar hemisphere encephalomalacia consistent with remote infarction. VENTRICLES: Unremarkable. No hydrocephalus. CALVARIUM: Unremarkable. PARANASAL SINUSES: Unremarkable as visualized. No significant inflammatory changes. MASTOID AIR CELLS: Unremarkable as visualized. No inflammatory changes. OTHER FINDINGS: None. IMPRESSION: Left cerebellar encephalomalacia. No acute findings identified. Preliminary impression was provided by virtual radiologic.
--- NOTE | 2017-11-18 08:52 | RAD ---
HISTORY: headache, heavy body COMPARISON: Chest x-ray performed 10/26/15 TECHNIQUE: Chest PA and lateral FINDINGS: Small radiopaque densities project over the chest likely related to external artifact from patient's clothing. Correlate clinically. LUNGS: No focal consolidation. Please note that chest x-ray has limited sensitivity for the detection of pulmonary masses. PLEURA: No significant pleural effusion identified. No definite pneumothorax . CARDIOVASCULAR: Cardiomegaly. Atherosclerotic calcifications of the aorta. OSSEOUS STRUCTURES: Degenerative changes. VISUALIZED UPPER ABDOMEN: Right upper quadrant surgical clips. OTHER FINDINGS: None. IMPRESSION: Cardiomegaly. Atherosclerotic calcifications of the aorta.
[2017-11-18] MEDS ORDERED: Enoxaparin 40 mg Syringe SC SCH (10:00)
[2017-11-18] MEDS ORDERED: Iohexol 350 MG/100 ML VIAL ONE (14:01)
--- NOTE | 2017-11-18 16:05 | CP.PCM.PN ---
<SherrillYoseph - Last Filed: 11/18/17 16:02> Subjective - Date & Time of Evaluation Date of Evaluation: 11/18/17 Time of Evaluation: 16:02 - Subjective Subjective: Medicine progress note for Dr. Chacon: Sherrill, PGY - 2, IM Resident Patient seen and examined at bedside. No acute events since admission, but patient is refusing MRI 2/2 claustrophobia, as she had on previous admissions as well. Patient denies any acute complaints, but states that she would like to be given ambien at night to sleep. I informed her that I would leave this up to the night resident if she has trouble sleeping. Objective - Vital Signs/Intake and Output Vital Signs (last 24 hours): Temp Pulse Resp BP Pulse Ox 98.3 F 74 18 116/78 98 11/18/17 14:12 11/18/17 14:12 11/18/17 14:12 11/18/17 14:12 11/18/17 06:00 Intake and Output: 11/18/17 11/18/17 06:59 18:59 Intake Total 0 Balance 0 - Medications Medications: Current Medications Aspirin (Aspirin Chewable) 81 mg PO DAILY [facility] Last Admin: 11/18/17 09:23 Dose: 81 mg - Labs Labs: 11/18/17 06:30 11/18/17 06:30 - Constitutional Appears: Well - Head Exam Head Exam: ATRAUMATIC, NORMAL INSPECTION, NORMOCEPHALIC Additional comments: Patient can turn her head from side to side and up and down without difficulty - Eye Exam Eye Exam: EOMI, Normal appearance, PERRL Pupil Exam: NORMAL ACCOMODATION, PERRL - ENT Exam ENT Exam: Mucous Membranes Moist, Normal Exam - Neck Exam Neck Exam: Full ROM, Normal Inspection. absent: Lymphadenopathy Additional comments: No Nuchal rigidity, - Respiratory Exam Respiratory Exam: Clear to Ausculation Bilateral, NORMAL BREATHING PATTERN - Cardiovascular Exam Cardiovascular Exam: REGULAR RHYTHM, +S1, +S2. absent: Murmur - GI/Abdominal Exam GI & Abdominal Exam: Soft, Normal Bowel Sounds. absent: Tenderness - Extremities Exam Extremities Exam: Full ROM, Normal Capillary Refill, Normal Inspection. absent : Joint Swelling, Pedal Edema - Back Exam Back Exam: NORMAL INSPECTION - Neurological Exam Neurological Exam: Alert, Awake, CN II-XII Intact, Oriented x3. absent: Motor Sensory Deficit Neuro motor strength exam: Left Upper Extremity: 5, Right Upper Extremity: 5, Left Lower Extremity: 5, Right Lower Extremity: 5 Additional comments: Patient can do finger to nose, heel to booth, and rapid hand movements without difficulty. No cerebellar deficits noted. - Psychiatric Exam Psychiatric exam: Normal Affect, Normal Mood - Skin Skin Exam: Dry, Intact, Normal Color, Warm Assessment and Plan - Assessment and Plan (Free Text) Assessment: 57 year old female admitted for atypical neurological complaints, what she describes as 'body heaviness.' CT head was negative for acute bleed, with left cerebellar encephalomalacia, but patient is known to have a past cerebellar stroke. Patient's admission in 2014 for presyncopal event showed negative troponins and negative acute stroke symptoms. Currently, B12 levels are low but Folate is normal. This would not cause the weakness symptoms that patient is describing, but will wait for neurology to comment on this. Troponin levels are negative X 2, pending third Plan: Generalized weakness - ASA 81 daily - Holding other anti-coagulation right now - Neuro Consulted: Dr. Taylor - Tox still pending - Neurocheck q4h - HHD Hypokalemia - Repleted; monitor with AM labs Questionable GERD - On chart review, previous admissions note that patient has had GERD, but no complaints this time PPX: DVT ppx: SCDs GI ppx: Not indicated at this time <Adiel Chacon - Last Filed: 11/18/17 20:36> Objective - Vital Signs/Intake and Output Vital Signs (last 24 hours): Temp Pulse Resp BP Pulse Ox 99 F 83 18 144/90 98 11/18/17 18:00 11/18/17 18:00 11/18/17 18:00 11/18/17 18:00 11/18/17 18:00 Intake and Output: 11/18/17 11/19/17 18:59 06:59 Intake Total 960 960 Output Total 500 Balance 460 960 - Medications Medications: Current Medications Aspirin (Aspirin Chewable) 81 mg PO DAILY [facility] Last Admin: 11/18/17 09:23 Dose: 81 mg Atorvastatin Calcium (Lipitor) 40 mg PO DIN [facility] - Labs Labs: 11/18/17 06:30 11/18/17 06:30 Attending/Attestation - Attestation I have personally seen and examined this patient.: Yes I have fully participated in the care of the patient.: Yes I have reviewed all pertinent clinical information, including history, physical exam and plan: Yes Notes (Text): 11/18/17 20:35 Patient seen and examined at bedside. Vitals, labs and Imaging reviewed. Neurology consult noted. Agree with the plan as discussed and outlined by the resident including continuation of ASA and statins as well as outpatient Echocardiogram and further diagnostics.
--- NOTE | 2017-11-18 16:43 | CP.PCM.CON ---
History of Present Illness - History of Present Illness History of Present Illness: Neurology Consultation Note: Mrs. Stevenson is a 57-year-old woman with a past medical history of left cerebellar ischemic stroke, who presented to the ED yesterday complaining of a generalized heaviness in her body that had been going on for the last week. CT scan of the head did not reveal any acute findings, but did demonstrate the chronic left cerebellar stroke. The patient stated that she takes Ambien for insomnia, but is not on any secondary stroke prevention with antiplatelet agents or statin. CTA of the head/neck showed left vertebral artery stenosis. The patient stated she is feeling better today and was able to ambulate normally. Review of Systems - Review of Systems All systems: reviewed and no additional remarkable complaints except Past Patient History - Infectious Disease Hx of Infectious Diseases: None - Tetanus Immunizations Tetanus Immunization: Unknown - Past Medical History & Family History Past Medical History?: No - Past Social History Smoking Status: Former Smoker - CARDIAC Hx Cardiac Disorders: No - PULMONARY Hx Respiratory Disorders: No - NEUROLOGICAL Hx Neurological Disorder: No - HEENT Hx HEENT Problems: Yes (wears glasses) - RENAL Hx Chronic Kidney Disease: No - ENDOCRINE/METABOLIC Hx Endocrine Disorders: No - HEMATOLOGICAL/ONCOLOGICAL Hx Blood Disorders: No - INTEGUMENTARY Hx Dermatological Problems: No - MUSCULOSKELETAL/RHEUMATOLOGICAL Hx Musculoskeletal Disorders: No Hx Falls: No - GASTROINTESTINAL Hx Gastrointestinal Disorders: Yes Hx Gall Bladder Disease: Yes Other/Comment: GALLSTONES - GENITOURINARY/GYNECOLOGICAL Hx Genitourinary Disorders: No - PSYCHIATRIC Hx Psychophysiologic Disorder: Yes Hx Substance Use: No Other/Comment: Insomnia - SURGICAL HISTORY Hx Surgeries: Yes (removal of stone in the gallbladder) - ANESTHESIA Hx Anesthesia: Yes Hx Anesthesia Reactions: No Hx Malignant Hyperthermia: No Meds Allergies/Adverse Reactions: Allergies Allergy/AdvReac Type Severity Reaction Status Date / Time No Known Allergies Allergy Verified 09/05/17 16:55 - Medications Medications: Current Medications Aspirin (Aspirin Chewable) 81 mg PO DAILY ANGELIA Last Admin: 11/18/17 09:23 Dose: 81 mg Physical Exam - Neurological Exam Neurological exam: Alert, CN II-XII Intact, Normal Gait, Oriented x3, Reflexes Normal Additional comments: FTN on the left side was slightly abnormal demonstrating some ataxia. NIHSS was 1. Results - Vital Signs Recent Vital Signs: Last Vital Signs Temp 98.3 F 11/18/17 14:12 Pulse 74 11/18/17 14:12 Resp 18 11/18/17 14:12 BP 116/78 11/18/17 14:12 Pulse Ox 98 11/18/17 06:00 - Labs Result Diagrams: 11/18/17 06:30 11/18/17 06:30 Labs: Laboratory Results - last 24 hr 11/18/17 11/18/17 11/18/17 06:30 06:30 06:30 WBC 3.3 L RBC 4.22 Hgb 11.8 L Hct 36.2 MCV 85.8 MCH 28.0 MCHC 32.6 RDW 14.0 Plt Count 300 MPV 9.7 Gran % 39.3 L Lymph % (Auto) 45.3 H Alexander % (Auto) 11.2 H Eos % (Auto) 3.9 Baso % (Auto) 0.3 Gran # 1.30 L Lymph # (Auto) 1.5 Alexander # (Auto) 0.4 Eos # (Auto) 0.1 Baso # (Auto) 0.01 Sodium 143 Potassium 3.4 L Chloride 106 Carbon Dioxide 28 Anion Gap 12 BUN 9 Creatinine 0.7 Est GFR ( Amer) > 60 Est GFR (Non-Af Amer) > 60 Random Glucose 85 Calcium 9.3 Total Bilirubin 0.5 AST 26 ALT 20 Alkaline Phosphatase 73 Troponin I Total Protein 7.0 Albumin 3.9 Globulin 3.1 Albumin/Globulin Ratio 1.3 Triglycerides 46 Cholesterol 188 LDL Cholesterol Direct 80 HDL Cholesterol 84 H 11/18/17 11/18/17 06:30 13:40 WBC RBC Hgb Hct MCV MCH MCHC RDW Plt Count MPV Gran % Lymph % (Auto) Alexander % (Auto) Eos % (Auto) Baso % (Auto) Gran # Lymph # (Auto) Alexander # (Auto) Eos # (Auto) Baso # (Auto) Sodium Potassium Chloride Carbon Dioxide Anion Gap BUN Creatinine Est GFR ( Amer) Est GFR (Non-Af Amer) Random Glucose Calcium Total Bilirubin AST ALT Alkaline Phosphatase Troponin I < 0.01 < 0.01 Total Protein Albumin Globulin Albumin/Globulin Ratio Triglycerides Cholesterol LDL Cholesterol Direct HDL Cholesterol Assessment & Plan (1) Old cerebellar infarct without late effect Assessment and Plan: There does not appear to be any significant change in the patient's level of function. Her neurological exam was benign. CT scan of the head did not show any acute findings. I recommend obtaining an MRI of the brain as an outpatient. An echocardiogram is also recommended. In addition, the patient should be on aspirin 81 mg daily and lipitor 40 mg daily for secondary stroke prevention. She should also be managed by the primary team for other risk factors. After the MRI of the brain and echocardiogram are done, the patient may follow up with me in the office. Thank you. Status: Acute Priority: High
--- NOTE | 2017-11-19 05:16 | CARD ---
APPROVED REPORT Date of service: 11/17/2017 EKG Measurement Heart [id number] <Conclusion> Normal sinus rhythm Possible Left atrial enlargement Borderline ECG
--- NOTE | 2017-11-19 06:18 | CP.PCM.PN ---
Subjective - Date & Time of Evaluation Date of Evaluation: 11/19/17 Time of Evaluation: 06:14 - Subjective Subjective: Please note - this is a draft. Plan has not yet been discussed with Dr. Chacon, Attending Physician Medicine progress note for Dr. Oswaldo Mccartney, PGY - 2, IM Resident Patient seen and examined at bedside. No acute events overnight; was very hungry overnight and tolerated dinner well without swallowing difficulty. This AM, patient has no complaints. Would like to go home. Objective - Vital Signs/Intake and Output Vital Signs (last 24 hours): Temp Pulse Resp BP Pulse Ox 97.7 F 94 H 18 118/75 98 11/19/17 06:00 11/19/17 06:00 11/19/17 06:00 11/19/17 06:00 11/19/17 06:00 Intake and Output: 11/18/17 11/19/17 18:59 06:59 Intake Total 960 1320 Output Total 500 Balance 460 1320 - Medications Medications: Current Medications Aspirin (Aspirin Chewable) 81 mg PO DAILY COUNTS INCLUDE 234 BEDS AT THE [facility] Last Admin: 11/18/17 09:23 Dose: 81 mg Atorvastatin Calcium (Lipitor) 40 mg PO DIN COUNTS INCLUDE 234 BEDS AT THE [facility] Last Admin: 11/18/17 21:08 Dose: 40 mg - Labs Labs: 11/18/17 06:30 11/18/17 06:30 Assessment and Plan - Assessment and Plan (Free Text) Assessment: 57 year old female admitted for atypical neurological complaints, what she describes as 'body heaviness.' CT head was negative for acute bleed, with left cerebellar encephalomalacia, but patient is known to have a past cerebellar stroke. Patient's admission in 2014 for presyncopal event showed negative troponins and negative acute stroke symptoms. Currently, B12 levels are low but Folate is normal. This would not cause the weakness symptoms that patient is describing in my opinion. Troponin levels are negative X 3, Lipid panel is within normal limits and her lipids are well controlled. Of note, patient also has a leukopenia of 3.3, down from a baseline of 4.5; patient has no other bone marrow abnormalities, etiologies at this point are uncertain. Patient needs better outpatient follow up. Plan: Generalized weakness - CTA H/N taken, pending read - Holding other anti-coagulation right now - Neuro Recommendations: Dr. Taylor ECHO MRI outpatient ASA 81 daily, Lipitor 40 daily - Tox still pending - Neurocheck q4h - HHD Leukopenia - Outpatient follow up Hypokalemia - Repleted; monitor with AM labs Questionable GERD - On chart review, previous admissions note that patient has had GERD, but no complaints this time PPX: DVT ppx: SCDs GI ppx: Not indicated at this time Dispo: Per neurology, patient can be discharged after ECHO obtained.
[2017-11-19 07:28] LABS: BASO # 0.02 K/mm3 (0.0-2.0); BASO % 0.5 % (0.0-3.0); EOS # 0.1 (0.0-0.7); GRAN # 1.65 (1.4-6.5); GRAN % 41.8 % (50.0-68.0); HEMOGLOBIN 12.6 g/dL (12.0-16.0); LYMPH # 1.7 (1.2-3.4); LYMPH % 43.8 % (22.0-35.0); MEAN CELL VOLUME 86.3 fl (80.0-105.0); MEAN CORPUSCULAR HEMOGLOBIN 28.4 pg (25.0-35.0); MEAN CORPUSCULAR HGB CONC 32.9 g/dl (31.0-37.0); MONO # 0.4 (0.1-0.6); MONO % 10.9 % (1.0-6.0); RBC 4.44 10^6/uL (3.5-6.1); RED CELL DISTRIBUTION WIDTH 14.2 % (11.5-14.5)
[2017-11-19 07:30] LABS: ALB/GLOB RATIO 1.2 (1.1-1.8); ALBUMIN 4.1 g/dL (3.0-4.8); ALT/SGPT 19 U/L (7-56); AST/SGOT 23 U/L (14-36); BLOOD UREA NITROGEN 19 mg/dL (7-21); CALCIUM 9.5 mg/dL (8.4-10.5); GFR NON-AFRICAN AMERICAN > 60
[2017-11-19 13:04] VITALS: BP 115/67; RESP 16; TEMP 98.1
--- NOTE | 2017-11-19 14:46 | CP.PCM.DIS ---
<Yoseph Mccartney - Last Filed: 11/19/17 14:42> Provider - Provider Date of Admission: 11/17/17 21:50 Attending physician: Nancie Coombs DO Primary care physician: [facility]INGH PRIMARY CARE PROVIDER Consults: Dr. Taylor - Neurology Time Spent in preparation of Discharge (in minutes): 35 Diagnosis - Discharge Diagnosis (1) Weakness Status: Acute Priority: Low (2) Dizziness Status: Acute Priority: Low (3) Old cerebellar infarct without late effect Status: Chronic Priority: Medium Hospital Course - Lab Results Lab Results: Micro Results 11/17/17 21:54 Urine,Clean Catch Urine Culture - Final No Growth (<1,000 CFU/ML) Most Recent Lab Values WBC 4.0 10^3/ul (4.5-11.0) L D 11/19/17 06:30 RBC 4.44 10^6/uL (3.5-6.1) 11/19/17 06:30 Hgb 12.6 g/dL (12.0-16.0) 11/19/17 06:30 Hct 38.3 % (36.0-48.0) 11/19/17 06:30 MCV 86.3 fl (80.0-105.0) 11/19/17 06:30 MCH 28.4 pg (25.0-35.0) 11/19/17 06:30 MCHC 32.9 g/dl (31.0-37.0) 11/19/17 06:30 RDW 14.2 % (11.5-14.5) 11/19/17 06:30 Plt Count 322 10^3/uL (120.0-450.0) 11/19/17 06:30 MPV 10.0 fl (7.0-11.0) 11/19/17 06:30 Gran % 41.8 % (50.0-68.0) L 11/19/17 06:30 Lymph % (Auto) 43.8 % (22.0-35.0) H 11/19/17 06:30 [place] % (Auto) 10.9 % (1.0-6.0) H 11/19/17 06:30 Eos % (Auto) 3.0 % (1.5-5.0) 11/19/17 06:30 Baso % (Auto) 0.5 % (0.0-3.0) 11/19/17 06:30 Gran # 1.65 (1.4-6.5) 11/19/17 06:30 Lymph # (Auto) 1.7 (1.2-3.4) 11/19/17 06:30 [place] # (Auto) 0.4 (0.1-0.6) 11/19/17 06:30 Eos # (Auto) 0.1 (0.0-0.7) 11/19/17 06:30 Baso # (Auto) 0.02 K/mm3 (0.0-2.0) 11/19/17 06:30 pO2 40 mm/Hg (30-55) 11/17/17 20:36 VBG pH 7.36 (7.32-7.43) 11/17/17 20:36 VBG pCO2 50.0 (40-60) 11/17/17 20:36 VBG HCO3 28.2 mmol/l (21-28) H 11/17/17 20:36 VBG Total CO2 29.7 mmol.L (22-28) H 11/17/17 20:36 VBG O2 Sat (Calc) 77.0 % (40-65) H 11/17/17 20:36 VBG Base Excess 1.9 mmol/L (0.0-2.0) 11/17/17 20:36 VBG Potassium 3.4 mmol/L (3.6-5.2) L 11/17/17 20:36 Sodium 140.0 mmol/L (132-148) 11/17/17 20:36 Chloride 106.0 mmol/L (98-107) 11/17/17 20:36 Glucose 78 mg/dl (65-105) 11/17/17 20:36 Lactate 0.7 mmol/L (0.7-2.1) 11/17/17 20:36 FiO2 21.0 % 11/17/17 20:36 Sodium 141 mmol/L (132-148) 11/19/17 06:30 Potassium 4.0 mmol/L (3.6-5.0) 11/19/17 06:30 Chloride 103 mmol/L (98-107) 11/19/17 06:30 Carbon Dioxide 29 mmol/L (21-33) 11/19/17 06:30 Anion Gap 13 (10-20) 11/19/17 06:30 BUN 19 mg/dL (7-21) 11/19/17 06:30 Creatinine 0.9 mg/dl (0.7-1.2) 11/19/17 06:30 Est GFR ( Amer) > 60 11/19/17 06:30 Est GFR (Non-Af Amer) > 60 11/19/17 06:30 Random Glucose 88 mg/dL (70-110) 11/19/17 06:30 Hemoglobin A1c 5.8 % (4.2-6.5) 11/18/17 06:30 Calcium 9.5 mg/dL (8.4-10.5) 11/19/17 06:30 Phosphorus 3.9 mg/dL (2.5-4.5) 11/17/17 20:30 Magnesium 2.0 mg/dL (1.7-2.2) 11/17/17 20:30 Total Bilirubin 0.4 mg/dL (0.2-1.3) 11/19/17 06:30 AST 23 U/L (14-36) 11/19/17 06:30 ALT 19 U/L (7-56) 11/19/17 06:30 Alkaline Phosphatase 72 U/L (38-126) 11/19/17 06:30 Troponin I < 0.01 ng/mL 11/18/17 20:04 NT-Pro-B Natriuret Pep 64.1 pg/mL (0-450) 11/17/17 20:30 Total Protein 7.4 g/dL (5.8-8.3) 11/19/17 06:30 Albumin 4.1 g/dL (3.0-4.8) 11/19/17 06:30 Globulin 3.3 gm/dL 11/19/17 06:30 Albumin/Globulin Ratio 1.2 (1.1-1.8) 11/19/17 06:30 Triglycerides 46 mg/dL (35-160) 11/18/17 06:30 Cholesterol 188 mg/dL (130-200) 11/18/17 06:30 LDL Cholesterol Direct 80 mg/dL (0-129) 11/18/17 06:30 HDL Cholesterol 84 mg/dL (29-60) H 11/18/17 06:30 Vitamin B12 206 pg/mL (239-931) L 11/17/17 20:30 Folate 12.0 ng/mL 11/17/17 20:30 TSH 3rd Generation 2.32 mIU/mL (0.46-4.68) 11/17/17 20:30 Venous Blood Potassium 3.4 mmol/L (3.6-5.2) L 11/17/17 20:36 Urine Color Straw (YELLOW) 11/17/17 20:45 Urine Appearance Clear (CLEAR) 11/17/17 20:45 Urine pH 6.0 (4.7-8.0) 11/17/17 20:45 Ur Specific [place] 1.020 (1.005-1.035) 11/17/17 20:45 Urine Protein Negative mg/dL (<30 mg/dL) 11/17/17 20:45 Urine Glucose (UA) Negative mg/dL (NEGATIVE) 11/17/17 20:45 Urine Ketones Negative mg/dL (NEGATIVE) 11/17/17 20:45 Urine Blood Negative (NEGATIVE) 11/17/17 20:45 Urine Nitrate Negative (NEGATIVE) 11/17/17 20:45 Urine Bilirubin Negative (NEGATIVE) 11/17/17 20:45 Urine Urobilinogen 0.2 E.U./dL (<1 E.U./dL) 11/17/17 20:45 Ur Leukocyte Esterase Trace Robinson/uL (NEGATIVE) H 11/17/17 20:45 Urine RBC 0 - 2 /hpf (0-2) 11/17/17 20:45 Urine WBC 1 - 3 /hpf (0-6) 11/17/17 20:45 Ur Epithelial Cells 3 - 4 /hpf (0-5) 11/17/17 20:45 Urine Bacteria Mod (NEG) 11/17/17 20:45 - Hospital Course Hospital Course: 57 year old female with past medical history pertinent for cerebellar stroke presented to hospital on 11/17 with complaints of "heaviness" when she walks. Patient also stated that she had this generalized "heaviness" throughout her body but that it wasn't localized. She further complained of difficulty speaking as well. She had a past diagnosis of cerebellar stroke but does not have any residual deficits resulting from that. During her hospital course here , patient saw Dr. Taylor, who recommended Head and Neck CTA, MRI of head, and CT of head, as well as taking ASA and Lipitor daily. While here, labs and imaging revealed hypokalemia with CT head showing no acute bleed. Head and neck CTA was performed, but is pending read. Patient refused MRI of head, as she has on previous admissions, 2/2 claustrophobia. B12 levels were mildly low at 206, but folate, TSh, and lipid panel were within normal limits. Acute stroke was therefore ruled out, and patient's symptoms improved throughout her stay here. Troponins were negative. Patient was able to tolerate a heart healthy diet and denied any problems swallowing. Of note, CT head also showed left cerebellar encephalomalacia. Chart review revealed that she had last been admited to [facility] in 2014 with a pre-syncopal event. On day of discharge, patient's symptoms had resolved and she was eager to leave. Patient was advised to get an ECHO outpatient as well as an MRI that did not cover the whole body so as to minimize her claustrophobia. Of note, patient also was asking for a script for ambien, but patient was advised to establish care with a primary care doctor. Patient was advised to establish care with Dr. Malik in the [facility] clinic as well as follow up with Dr. Taylor out patient. Patient was optimized medically and clear for discharge. Discharge Exam - Head Exam Head Exam: ATRAUMATIC, NORMAL INSPECTION, NORMOCEPHALIC - Eye Exam Eye Exam: EOMI, Normal appearance, PERRL Pupil Exam: NORMAL ACCOMODATION, PERRL - Respiratory Exam Respiratory Exam: Clear to PA & Lateral, NORMAL BREATHING PATTERN, UNREMARKABLE - GI/Abdominal Exam GI & Abdominal Exam: Normal Bowel Sounds - Back Exam Back exam: NORMAL INSPECTION - Neurological Exam Neurological exam: Alert, CN II-XII Intact, Normal Gait, Oriented x3, Reflexes Normal - Psychiatric Exam Psychiatric exam: Normal Affect, Normal Mood - Skin Skin Exam: Dry, Intact, Normal Color, Warm Discharge Plan - Discharge Medications Prescriptions: Aspirin [Aspirin Chewable] 81 mg PO DAILY #30 chew Atorvastatin [Lipitor] 40 mg PO DIN #30 tab - Follow Up Plan Condition: GOOD Disposition: HOME/ ROUTINE Instructions: Syncope (Fainting), Near Fainting (DC), Weakness (GEN) Additional Instructions: *Outpatient MRI and ECHO recommended. *Follow up with neurologist, Dr Taylor in his office *Please establish care with a primary care physician. We recommend you follow up with Dr. Malik at [facility] Clinic - please make an appointment by calling [phone] *Should your symptoms recur or worsen, please return to the nearest ED Referrals: Damon Taylor MD [Staff Provider] - <OswaldoMadisonpatrick - Last Filed: 11/19/17 22:09> Provider - Provider Date of Admission: 11/17/17 21:50 Attending physician: Nancie Coobms, Primary care physician: NO PRIMARY CARE PROVIDER Hospital Course - Lab Results Lab Results: Micro Results 11/17/17 21:54 Urine,Clean Catch Urine Culture - Final No Growth (<1,000 CFU/ML) Most Recent Lab Values WBC 4.0 10^3/ul (4.5-11.0) L D 11/19/17 06:30 RBC 4.44 10^6/uL (3.5-6.1) 11/19/17 06:30 Hgb 12.6 g/dL (12.0-16.0) 11/19/17 06:30 Hct 38.3 % (36.0-48.0) 11/19/17 06:30 MCV 86.3 fl (80.0-105.0) 11/19/17 06:30 MCH 28.4 pg (25.0-35.0) 11/19/17 06:30 MCHC 32.9 g/dl (31.0-37.0) 11/19/17 06:30 RDW 14.2 % (11.5-14.5) 11/19/17 06:30 Plt Count 322 10^3/uL (120.0-450.0) 11/19/17 06:30 MPV 10.0 fl (7.0-11.0) 11/19/17 06:30 Gran % 41.8 % (50.0-68.0) L 11/19/17 06:30 Lymph % (Auto) 43.8 % (22.0-35.0) H 11/19/17 06:30 [place] % (Auto) 10.9 % (1.0-6.0) H 11/19/17 06:30 Eos % (Auto) 3.0 % (1.5-5.0) 11/19/17 06:30 Baso % (Auto) 0.5 % (0.0-3.0) 11/19/17 06:30 Gran # 1.65 (1.4-6.5) 11/19/17 06:30 Lymph # (Auto) 1.7 (1.2-3.4) 11/19/17 06:30 [place] # (Auto) 0.4 (0.1-0.6) 11/19/17 06:30 Eos # (Auto) 0.1 (0.0-0.7) 11/19/17 06:30 Baso # (Auto) 0.02 K/mm3 (0.0-2.0) 11/19/17 06:30 pO2 40 mm/Hg (30-55) 11/17/17 20:36 VBG pH 7.36 (7.32-7.43) 11/17/17 20:36 VBG pCO2 50.0 (40-60) 11/17/17 20:36 VBG HCO3 28.2 mmol/l (21-28) H 11/17/17 20:36 VBG Total CO2 29.7 mmol.L (22-28) H 11/17/17 20:36 VBG O2 Sat (Calc) 77.0 % (40-65) H 11/17/17 20:36 VBG Base Excess 1.9 mmol/L (0.0-2.0) 11/17/17 20:36 VBG Potassium 3.4 mmol/L (3.6-5.2) L 11/17/17 20:36 Sodium 140.0 mmol/L (132-148) 11/17/17 20:36 Chloride 106.0 mmol/L (98-107) 11/17/17 20:36 Glucose 78 mg/dl (65-105) 11/17/17 20:36 Lactate 0.7 mmol/L (0.7-2.1) 11/17/17 20:36 FiO2 21.0 % 11/17/17 20:36 Sodium 141 mmol/L (132-148) 11/19/17 06:30 Potassium 4.0 mmol/L (3.6-5.0) 11/19/17 06:30 Chloride 103 mmol/L (98-107) 09/02/18 06:30 Carbon Dioxide 29 mmol/L (21-33) 11/19/17 06:30 Anion Gap 13 (10-20) 11/19/17 06:30 BUN 19 mg/dL (7-21) 11/19/17 06:30 Creatinine 0.9 mg/dl (0.7-1.2) 11/19/17 06:30 Est GFR ( Amer) > 60 11/19/17 06:30 Est GFR (Non-Af Amer) > 60 11/19/17 06:30 Random Glucose 88 mg/dL (70-110) 11/19/17 06:30 Hemoglobin A1c 5.8 % (4.2-6.5) 11/18/17 06:30 Calcium 9.5 mg/dL (8.4-10.5) 11/19/17 06:30 Phosphorus 3.9 mg/dL (2.5-4.5) 11/17/17 20:30 Magnesium 2.0 mg/dL (1.7-2.2) 11/17/17 20:30 Total Bilirubin 0.4 mg/dL (0.2-1.3) 11/19/17 06:30 AST 23 U/L (14-36) 11/19/17 06:30 ALT 19 U/L (7-56) 11/19/17 06:30 Alkaline Phosphatase 72 U/L (38-126) 11/19/17 06:30 Troponin I < 0.01 ng/mL 11/18/17 20:04 NT-Pro-B Natriuret Pep 64.1 pg/mL (0-450) 11/17/17 20:30 Total Protein 7.4 g/dL (5.8-8.3) 11/19/17 06:30 Albumin 4.1 g/dL (3.0-4.8) 11/19/17 06:30 Globulin 3.3 gm/dL 11/19/17 06:30 Albumin/Globulin Ratio 1.2 (1.1-1.8) 11/19/17 06:30 Triglycerides 46 mg/dL (35-160) 11/18/17 06:30 Cholesterol 188 mg/dL (130-200) 11/18/17 06:30 LDL Cholesterol Direct 80 mg/dL (0-129) 11/18/17 06:30 HDL Cholesterol 84 mg/dL (29-60) H 11/18/17 06:30 Vitamin B12 206 pg/mL (239-931) L 11/17/17 20:30 Folate 12.0 ng/mL 11/17/17 20:30 TSH 3rd Generation 2.32 mIU/mL (0.46-4.68) 11/17/17 20:30 Venous Blood Potassium 3.4 mmol/L (3.6-5.2) L 11/17/17 20:36 Urine Color Straw (YELLOW) 11/17/17 20:45 Urine Appearance Clear (CLEAR) 11/17/17 20:45 Urine pH 6.0 (4.7-8.0) 11/17/17 20:45 Ur Specific [place] 1.020 (1.005-1.035) 11/17/17 20:45 Urine Protein Negative mg/dL (<30 mg/dL) 11/17/17 20:45 Urine Glucose (UA) Negative mg/dL (NEGATIVE) 11/17/17 20:45 Urine Ketones Negative mg/dL (NEGATIVE) 11/17/17 20:45 Urine Blood Negative (NEGATIVE) 11/17/17 20:45 Urine Nitrate Negative (NEGATIVE) 11/17/17 20:45 Urine Bilirubin Negative (NEGATIVE) 11/17/17 20:45 Urine Urobilinogen 0.2 E.U./dL (<1 E.U./dL) 11/17/17 20:45 Ur Leukocyte Esterase Trace [place]/uL (NEGATIVE) H 11/17/17 20:45 Urine RBC 0 - 2 /hpf (0-2) 11/17/17 20:45 Urine WBC 1 - 3 /hpf (0-6) 11/17/17 20:45 Ur Epithelial Cells 3 - 4 /hpf (0-5) 11/17/17 20:45 Urine Bacteria Mod (NEG) 11/17/17 20:45 Attending/Attestation - Attestation I have personally seen and examined this patient.: Yes I have fully participated in the care of the patient.: Yes I have reviewed all pertinent clinical information, including history, physical exam and plan: Yes Notes (Text): 11/19/17 22:09 Patient seen and examined at bedside. Vitals, labs and imaging reviewed. Agree with the discharge plan as outlined by the resident.
[2017-11-19 15:13] VITALS: PULSE 80
--- NOTE | 2017-11-21 08:52 | CT ---
Date of service: 11/18/2017 PROCEDURE: CT Angiography of the neck with contrast HISTORY: LE weakness COMPARISON: None. TECHNIQUE: Contiguous axial images of the neck were obtained from the level of the skull-base to the superior mediastinum in the arteriographic phase of enhancement. Coronal and sagittal reformats or also generated. IV contrast dose: 100 cc of Omni 350 Radiation Dose - DLP: 496 mGy-cm This CT exam was performed using one or more of the following dose reduction techniques: Automated exposure control, adjustment of the mA and/or kV according to patient size, and/or use of iterative reconstruction technique. FINDINGS: RIGHT CAROTID ARTERIES: Common Carotid Artery: Normal. Carotid Bifurcation: Normal. Internal Carotid Artery:Normal. External Carotid Artery (proximal branches): Normal. LEFT CAROTID ARTERIES: Common Carotid Artery: Normal. Carotid Bifurcation: Normal. Internal Carotid Artery:Normal. External Carotid Artery (proximal branches): Normal. VERTEBRAL ARTERIES: Right Vertebral Artery: Normal. Left Vertebral Artery: Normal. OTHER FINDINGS: None. IMPRESSION: Normal CT Angiography of the neck. PROCEDURE: CT Angiography of the Brain. HISTORY: LE weakness COMPARISON: None available. TECHNIQUE: CT angiography of the intracranial arteries was performed. Coronal and sagittal maximum intensity projection reformated images were generated. This CT exam was performed using one or more of the following dose reduction techniques: Automated exposure control, adjustment of the mA and/or kV according to patient size, and/or use of iterative reconstruction technique. FINDINGS: INTERNAL CEREBRAL ARTERIES: Unremarkable. The skull base, petrous, cavernous and supraclinoid segments are bilaterally widely patent. ANTERIOR CEREBRAL ARTERIES: Unremarkable. A1 and A2 segments are widely patent. Smaller distal branches unremarkable, as visualized. MIDDLE CEREBRAL ARTERIES: Unremarkable. M1 and M2 segments are widely patent. Perisylvian branches grossly symmetric. POSTERIOR CIRCULATION: Basilar Artery: Unremarkable. Distal Vertebral Arteries: Unremarkable. Posterior Cerebral Arteries: Unremarkable. Posterior Inferior Cerebellar Arteries: Unremarkable. ANEURYSM/ VASCULAR MALFORMATIONS: None. OTHER FINDINGS: The report concurs with the preliminary [facility] report IMPRESSION: Unremarkable CT Angiography of the Brain.
== END 2017-11-19 15:36 | disposition home or self-care (01) | DRG 463 ==
LOC: ED 19:00 → ERH 21:50 → 2RNO 23:24
PROVIDERS: ADMIT Hospitalist; ATTEND Hospitalist
DX: R53.1 Weakness (principal); I65.02 Occlusion and stenosis of left vertebral artery; E87.6 Hypokalemia; R42 Dizziness and giddiness; G47.00 Insomnia, unspecified; G93.89 Other specified disorders of brain; K80.20 Calculus of gallbladder without cholecystitis without obstruction; R13.10 Dysphagia, unspecified; F40.240 Claustrophobia; Z86.73 Personal history of transient ischemic attack (TIA), and cerebral infarction without residual deficits; Z87.891 Personal history of nicotine dependence

== ENCOUNTER 2018-04-25 18:41 | Emergency (ER) | payer OTHER ==
[2018-04-25 18:42] VITALS: BMI 24.2
[2018-04-25 18:58] VITALS: TEMP 98.3
[2018-04-25 20:02] VITALS: BP 144/89; PULSE 76; RESP 18; O2SAT 100
--- NOTE | 2018-04-25 20:33 | ED PDOC ---
Arrival/HPI - General Chief Complaint: High Blood Pressure Time Seen by Provider: 04/25/18 18:48 Historian: Patient - History of Present Illness Narrative History of Present Illness (Text): 04/25/18 20:33 57-year-old female presenting today stating she's not feeling well. Patient states she's been feeling dizzy as if she is going to pass out. Patient states she now has a headache. She denies chest pain or shortness of breath. Patient states she has a prior history of cerebellar stroke approximately 5 years ago. Patient denies chest pain or shortness of breath. No other complaints Past Medical History - Provider Review Nursing Documentation Reviewed: Yes - Travel History Have you recently traveled outside [place] w/in the past 3 mons?: No - Infectious Disease Hx of Infectious Diseases: None - Tetanus Immunization Tetanus Immunization: Unknown - Reproductive Menopause: Yes - Cardiac Hx Cardiac Disorders: No Hx Hypertension: Yes - Pulmonary Hx Respiratory Disorders: No - Neurological Hx Neurological Disorder: No - HEENT Hx HEENT Disorder: Yes (wears glasses) - Renal Hx Renal Disorder: No - Endocrine/Metabolic Hx Endocrine Disorders: No - Hematological/Oncological Hx Blood Disorders: No - Integumentary Hx Dermatological Disorder: No - Musculoskeletal/Rheumatological Hx Musculoskeletal Disorders: No Hx Falls: No - Gastrointestinal Hx Gastrointestinal Disorders: Yes Hx Gall Bladder Disease: Yes Other/Comment: GALLSTONES - Genitourinary/Gynecological Hx Genitourinary Disorders: No - Psychiatric Hx Psychophysiologic Disorder: Yes Hx Substance Use: No Other/Comment: Insomnia - Anesthesia Hx Anesthesia: Yes Hx Anesthesia Reactions: No Hx Malignant Hyperthermia: No - Suicidal Assessment Feels Threatened In Home Enviroment: No Family/Social History - Physician Review Nursing Documentation Reviewed: Yes Family/Social History: Unknown Family HX Smoking Status: Former Smoker Hx Alcohol Use: No Hx Substance Use: No Allergies/Home Meds Allergies/Adverse Reactions: Allergies No Known Allergies Allergy (Verified 04/25/18 18:58) Home Medications: Home Meds Medication Instructions Recorded Confirmed Unk Bp Pill 04/25/18 Review of Systems - Review of Systems Constitutional: absent: Fatigue, Fevers Eyes: absent: Vision Changes, Photophobia, Eye Pain ENT: absent: Sore Throat, Sinus Congestion Respiratory: absent: SOB, Cough Cardiovascular: absent: Chest Pain, Palpitations Gastrointestinal: absent: Abdominal Pain, Nausea, Vomiting Musculoskeletal: absent: Arthralgias, Back Pain, Neck Pain Skin: absent: Rash, Pruritis Neurological: Headache, Dizziness Psychiatric: absent: Anxiety, Depression, Suicidal Ideation Physical Exam Vital Signs Reviewed: Yes Vital Signs Temp Pulse Resp BP Pulse Ox 04/25/18 20:02 76 18 144/89 100 04/25/18 18:54 98.3 F 74 16 128/83 99 Temperature: Afebrile Blood Pressure: Normal Pulse: Regular Respiratory Rate: Normal Appearance: Positive for: Well-Appearing, Non-Toxic, Comfortable Pain Distress: None Mental Status: Positive for: Alert and Oriented X 3 - Systems Exam Head: Present: Atraumatic Pupils: Present: PERRL Extroacular Muscles: Present: EOMI Conjunctiva: Present: Normal Mouth: Present: Moist Mucous Membranes Pharnyx: Present: Normal Respiratory/Chest: Present: Clear to Auscultation Cardiovascular: Present: Regular Rate and Rhythm Upper Extremity: Present: Normal ROM Lower Extremity: Present: Normal ROM Neurological: Present: GCS=15, Speech Normal, Motor Func Grossly Intact, Normal Sensory Function, Normal Cerebellar Funct (finger to nose intact), Gait Normal Skin: Present: Warm, Dry, Normal Color. No: Rashes Psychiatric: Present: Alert, Oriented x 3 Medical Decision Making ED Course and Treatment: 04/25/18 20:28 57-year-old female with a history of hypertension and old cerebellar stroke presents today with dizziness and near syncope and heaviness. Patient states she just not feeling right. patient ambulating with a steady gait. Vital signs are stable. EKG shows normal sinus rhythm at 72 bpm normal axis no ST elevations Labs,CAT scan, ekg, cxr ordered. pt is refusing testing/treatment. does not want to stay in the hospital. Patient has been advised to not leave the emergency room but has decided to go AGAINST MEDICAL ADVICE. The patient possesses capacity to make decisions and has voiced understanding to all my warnings of potential worsening of the condition for which medical care was sought. I have discussed all known and potential risks and consequences to the patient leaving AGAINST MEDICAL ADVICE. Patient is leaving against medical advise. AMA form signed. witness by KANDACE arias. patient was advised that she return at any point in time if she wishes to continue her care. I discussed in depth with the patient my concern for possible stroke. impression: Dizziness, Return if you wish to continue your care Return immediately if symptoms worsen persist or if new concerning symptoms develop - RAD Interpretation Radiology Orders: 04/25/18 19:48 CHEST PORTABLE [RAD] Stat 04/25/18 19:49 HEAD W/O CONTRAST [CT] Stat Disposition/Present on Arrival - Present on Arrival Any Indicators Present on Arrival: No History of DVT/PE: No History of Uncontrolled Diabetes: No Urinary Catheter: No History of Decub. Ulcer: No History Surgical Site Infection Following: None - Disposition Have Diagnosis and Disposition been Completed?: Yes Diagnosis: Dizziness Disposition: AGAINST MEDICAL ADVICE Disposition Time: 20:28 Patient Plan: Other (AMA) Patient Problems: Current Active Problems Problem Status Onset Dizziness Acute Condition: UNKNOWN Referrals: [facility] Mallory Renatasha, [Primary Care Provider] - Follow up with primary Forms: [employer] (Kiswahili)
--- NOTE | 2018-04-26 19:05 | CARD ---
APPROVED REPORT Date of service: 04/25/2018 EKG Measurement Heart [id number] <Conclusion> Normal sinus rhythm Possible Left atrial enlargement Borderline ECG
== END 2018-04-25 20:25 | disposition left against medical advice (07) ==
LOC: ED 18:41
DX: R42 Dizziness and giddiness (principal); I10 Essential (primary) hypertension; Z86.73 Personal history of transient ischemic attack (TIA), and cerebral infarction without residual deficits; Z87.891 Personal history of nicotine dependence

== ENCOUNTER 2018-06-04 19:59 | Emergency (ER) | payer OTHER ==
[2018-06-04 19:59] VITALS: BMI 24.2
[2018-06-04 20:30] VITALS: RESP 18; O2SAT 96
--- NOTE | 2018-06-04 20:51 | ED PDOC ---
"Arrival/HPI - General Chief Complaint: High Blood Pressure Historian: Patient - History of Present Illness Narrative History of Present Illness (Text): 06/04/18 23:57 57 year old female, with a past medical history of previous cerebellar stroke, chronic heartburn and dysphasia, who presents to the emergency department for evaluation of an elevated blood pressure. Patient reports she is on medications for her blood pressure, but denies taking any today. Patient also reports she has a scheduled appointment with her PMD tomorrow afternoon. Patient denies any headaches, chills, shortness of breath, chest pain, abdominal pain, or any other complaints. Time/Duration: 24 hours Symptom Onset: Gradual Symptom Course: Unchanged Activities at Onset: Light Context: Home Past Medical History - Provider Review Nursing Documentation Reviewed: Yes - Infectious Disease Hx of Infectious Diseases: None - Tetanus Immunization Tetanus Immunization: Unknown - Reproductive Menopause: Yes - Cardiac Hx Cardiac Disorders: Yes Hx Hypertension: Yes - Pulmonary Hx Respiratory Disorders: No - Neurological Hx Neurological Disorder: No - HEENT Hx HEENT Disorder: Yes (wears glasses) - Renal Hx Renal Disorder: No - Endocrine/Metabolic Hx Endocrine Disorders: No - Hematological/Oncological Hx Blood Disorders: No - Integumentary Hx Dermatological Disorder: No - Musculoskeletal/Rheumatological Hx Musculoskeletal Disorders: No Hx Falls: No - Gastrointestinal Hx Gastrointestinal Disorders: Yes Hx Gall Bladder Disease: Yes Other/Comment: GALLSTONES - Genitourinary/Gynecological Hx Genitourinary Disorders: No - Psychiatric Hx Psychophysiologic Disorder: Yes Hx Substance Use: No Other/Comment: Insomnia - Anesthesia Hx Anesthesia: Yes Hx Anesthesia Reactions: No Hx Malignant Hyperthermia: No - Suicidal Assessment Feels Threatened In Home Enviroment: No Family/Social History - Physician Review Nursing Documentation Reviewed: Yes Family/Social History: Unknown Family HX Smoking Status: Former Smoker Hx Alcohol Use: No Hx Substance Use: No Allergies/Home Meds Allergies/Adverse Reactions: Allergies No Known Allergies Allergy (Verified 04/25/18 18:58) Home Medications: Home Meds Medication Instructions Recorded Confirmed amLODIPine [Norvasc] 5 mg PO DAILY 06/04/18 06/04/18 Review of Systems - Physician Review All systems were reviewed & negative as marked: Yes - Review of Systems Constitutional: absent: Fevers Respiratory: absent: SOB Cardiovascular: absent: Chest Pain Gastrointestinal: absent: Abdominal Pain Musculoskeletal: absent: Back Pain, Neck Pain Neurological: absent: Headache Physical Exam Vital Signs Temp Pulse Resp BP Pulse Ox 06/04/18 20:07 98.5 F 97 H 18 153/77 H 96 Temperature: Afebrile Blood Pressure: Hypertensive Pulse: Tachycardic Respiratory Rate: Normal Appearance: Positive for: Well-Appearing, Non-Toxic, Comfortable Pain Distress: None Mental Status: Positive for: Alert and Oriented X 3 - Systems Exam Head: Present: Atraumatic, Normocephalic Pupils: Present: PERRL Extroacular Muscles: Present: EOMI Conjunctiva: Present: Normal Mouth: Present: Moist Mucous Membranes Neck: Present: Normal Range of Motion Respiratory/Chest: Present: Clear to Auscultation, Good Air Exchange. No: Respiratory Distress, Accessory Muscle Use Cardiovascular: Present: Regular Rate and Rhythm, Normal S1, S2. No: Murmurs Abdomen: No: Tenderness, Distention, Peritoneal Signs Back: Present: Normal Inspection Upper Extremity: Present: Normal Inspection. No: Cyanosis, Edema Lower Extremity: Present: Normal Inspection. No: Edema Neurological: Present: GCS=15, Speech Normal Skin: Present: Warm, Dry, Normal Color. No: Rashes Psychiatric: Present: Alert, Oriented x 3, Normal Insight, Normal Concentration Medical Decision Making ED Course and Treatment: 06/04/18 20:51 Impression: 57 year old female presents to the emergency department for evaluation on an elevated blood pressure. Differential Diagnosis included but are not limited to: Plan: -- EKG -- Reassess and disposition Prior Visits: Notes and results from previous visits were reviewed. Progress Notes: EKG reviewed, shows: NSR at 84 - Scribe Statement The provider has reviewed the documentation as recorded by the Sunny Hartley All medical record entries made by the Sunny were at my direction and personally dictated by me. I have reviewed the chart and agree that the record accurately reflects my personal performance of the history, physical exam, medical decision making, and the department course for this patient. I have also personally directed, reviewed, and agree with the discharge instructions and disposition. Disposition/Present on Arrival - Present on Arrival Any Indicators Present on Arrival: No History of DVT/PE: No History of Uncontrolled Diabetes: No Urinary Catheter: No History of Decub. Ulcer: No History Surgical Site Infection Following: None - Disposition Have Diagnosis and Disposition been Completed?: Yes Diagnosis: Hypertension Disposition: HOME/ ROUTINE Disposition Time: 20:25 Condition: GOOD Discharge Instructions (ExitCare): High Blood Pressure (DC), Low Salt Diet Additional Instructions: TRINA PAUL, thank you for letting us take care of you today. Your provider was Yaya Bullock DO and you were treated for HIGH BLOOD PRESSURE. The emergency medical care you received today was directed at your acute symptoms. If you were prescribed any medication, please fill it and take as directed. It may take several days for your symptoms to resolve. Return to the Emergency Department if your symptoms worsen, do not improve, or if you have any other problems. Please contact your doctor or call one of the physicians/clinics you have been referred to that are listed on the Patient Visit Information form that is included in your discharge packet. Bring any paperwork you were given at dischar ge with you along with any medications you are taking to your follow up visit. Our treatment cannot replace ongoing medical care by a primary care provider outside of the emergency department. Thank you for allowing the [facility] team to be part of your care today. You need to take your blood pressure medication every day as prescribed. Follow up with your primary care doctor tomorrow as scheduled. They may want to change the way you take your medication or change to another type. Referrals: [facility] | [facility], [Non-Staff] - Follow up with primary Forms: [employer] (Spanish)"
[2018-06-04 21:25] VITALS: BP 106/86; PULSE 86; TEMP 98.2
--- NOTE | 2018-06-05 21:10 | CARD ---
APPROVED REPORT Date of service: 06/04/2018 EKG Measurement Heart [id number] <Conclusion> Normal sinus rhythm Normal ECG
== END 2018-06-04 20:55 | disposition home or self-care (01) ==
LOC: ED 19:59
DX: I10 Essential (primary) hypertension (principal); Z86.73 Personal history of transient ischemic attack (TIA), and cerebral infarction without residual deficits; Z87.891 Personal history of nicotine dependence